=== PATIENT | female | born 1995 | race Caucasian/White ===

== ENCOUNTER 2024-07-13 19:30 | Emergency (ER) | payer MEDICAID, OTHER ==
[2024-07-13 19:38] VITALS: PULSE 80; RESP 16; O2SAT 97
== END 2024-07-13 20:54 | disposition left against medical advice (07) ==
LOC: ER 19:30
DX: K08.89 Other specified disorders of teeth and supporting structures (principal); Z53.21 Procedure and treatment not carried out due to patient leaving prior to being seen by health care provider
CPT/HCPCS: 99281